=== PATIENT | male | born 1955 | race Caucasian/White ===

== ENCOUNTER 2021-09-05 10:43 | Inpatient (IN) | payer MEDICARE, OTHER ==
[~2021-09-05] VITALS: Ht 162.6 cm; Wt 76.7 kg
[2021-09-05 13:46] LABS: HEMOGLOBIN 15.3 gm/dl (14.0-17.5); RED BLOOD COUNT 4.9 M/UL (4.20-5.50); WHITE BLOOD COUNT 9.4 K/UL (4.5-11.0)
[2021-09-05 14:44] LABS: BUN/CREATININE RATIO 24 (0-10)
[2021-09-05] MEDS ORDERED: DICLOFENAC SODI50 MG PO (18:17)
[2021-09-05] MEDS ORDERED: ATORVASTATIN CA40 MG PO (18:18)
[2021-09-05] MEDS ORDERED: AMMONIUM LACTA225 GM TOP (18:18)
[2021-09-05] MEDS ORDERED: DEPAKOTE ER500 MG PO (18:19)
[2021-09-05] MEDS ORDERED: BENZTROPINE MESY1 MG PO (18:19)
[2021-09-05] MEDS ORDERED: METFORMIN HCL500 MG PO (18:20)
[2021-09-05] MEDS ORDERED: OMEPRAZOLE20 MG PO (18:20)
[2021-09-05] MEDS ORDERED: FOLIC ACID1 MG PO (18:20)
[2021-09-05] MEDS ORDERED: OXCARBAZEPINE600 MG PO (18:21)
[2021-09-05] MEDS ORDERED: RISPERIDONE0.5 MG PO (18:21)
[2021-09-05] MEDS ORDERED: ASPIRIN EC81 MG PO (18:22)
[2021-09-05] MEDS ORDERED: VITAMIN B-121000 MCG PO (18:22)
[2021-09-05] MEDS ORDERED: CALCIUM + VITA1 EACH PO (18:22)
[2021-09-06 06:42] LABS: HEMOGLOBIN 14.4 gm/dl (14.0-17.5); RED BLOOD COUNT 4.61 M/UL (4.20-5.50); WHITE BLOOD COUNT 7.6 K/UL (4.5-11.0)
[2021-09-06 06:54] LABS: BUN/CREATININE RATIO 24 (0-10)
[2021-09-07 10:28] LABS: HEMOGLOBIN 14.3 gm/dl (14.0-17.5); RED BLOOD COUNT 4.54 M/UL (4.20-5.50); WHITE BLOOD COUNT 6.3 K/UL (4.5-11.0)
[2021-09-07 10:54] LABS: BUN/CREATININE RATIO 16 (0-10)
[2021-09-08 07:33] LABS: HEMOGLOBIN 14.2 gm/dl (14.0-17.5); RED BLOOD COUNT 4.65 M/UL (4.20-5.50); WHITE BLOOD COUNT 7.4 K/UL (4.5-11.0)
[2021-09-08 08:51] LABS: BUN/CREATININE RATIO 11 (0-10)
[2021-09-09 11:28] LABS: HEMOGLOBIN 15.1 gm/dl (14.0-17.5); RED BLOOD COUNT 4.83 M/UL (4.20-5.50); WHITE BLOOD COUNT 7.7 K/UL (4.5-11.0)
[2021-09-09 11:47] LABS: BUN/CREATININE RATIO 15 (0-10)
[2021-09-09] MEDS ORDERED: ELIQUIS 5 MG TAB5 MG PO ×2 (14:43→14:48)
== END 2021-09-09 16:07 | disposition home or self-care (01) | DRG 300 ==
LOC: EDBD 10:43 → ER1 10:43 → CDU 16:23 → MED SURG 4 16:23
PROVIDERS: Physician Assistant; ADMIT Internal Medicine
DX: I82.621 Acute embolism and thrombosis of deep veins of right upper extremity (principal); E22.2 Syndrome of inappropriate secretion of antidiuretic hormone; Z20.822 Contact with and (suspected) exposure to COVID-19; M50.30 Other cervical disc degeneration, unspecified cervical region; S14.3XXA Injury of brachial plexus, initial encounter; G31.84 Mild cognitive impairment of uncertain or unknown etiology; E78.5 Hyperlipidemia, unspecified; I82.A11 Acute embolism and thrombosis of right axillary vein; G40.909 Epilepsy, unspecified, not intractable, without status epilepticus; F79 Unspecified intellectual disabilities; M48.02 Spinal stenosis, cervical region; Z91.81 History of falling; Z79.01 Long term (current) use of anticoagulants; Z79.82 Long term (current) use of aspirin
CPT/HCPCS: 36415; 70450; 72125; 73030; 73060; 73080; 73090; 73130; 80048; 80053; 82550; 82553; 83735; 83874; 84439; 84443; 84484; 85025; 85027; 85610; 85730; 93005; 93931; 93971; 97116-GP-CQ; 97161; 97530-GP-CQ; 99285; J1650; U0002

== ENCOUNTER 2021-12-20 18:37 | Emergency (ER) | payer MEDICARE, OTHER ==
[~2021-12-20 18:37] MED LIST: AMMONIUM LACTA225 GM TOP; ASPIRIN EC81 MG PO; ATORVASTATIN CA40 MG PO; BENZTROPINE MESY1 MG PO; CALCIUM + VITA1 EACH PO; DEPAKOTE ER500 MG PO; DICLOFENAC SODI50 MG PO; ELIQUIS 5 MG TAB5 MG PO; FOLIC ACID1 MG PO; METFORMIN HCL500 MG PO; OMEPRAZOLE20 MG PO; OXCARBAZEPINE600 MG PO; RISPERIDONE0.5 MG PO; VITAMIN B-121000 MCG PO
== END 2021-12-20 19:35 | disposition home or self-care (01) ==
LOC: ER1 18:37
DX: U07.1 COVID-19 (principal); E11.9 Type 2 diabetes mellitus without complications; Z79.84 Long term (current) use of oral hypoglycemic drugs; K21.9 Gastro-esophageal reflux disease without esophagitis; E78.5 Hyperlipidemia, unspecified; G40.909 Epilepsy, unspecified, not intractable, without status epilepticus; I10 Essential (primary) hypertension; F17.290 Nicotine dependence, other tobacco product, uncomplicated
CPT/HCPCS: 99283

== ENCOUNTER → 2021-12-23 | Outpatient (CLI) | payer MEDICARE, OTHER ==
[~2021-12-23] VITALS: Ht 162.6 cm; Wt 76.7 kg
== END ==
LOC: EROP 11:51
DX: U07.1 COVID-19 (principal); Z23 Encounter for immunization
CPT/HCPCS: M0247; Q0247

== ENCOUNTER 2022-01-27 18:59 | Emergency (ER) | payer MEDICARE, OTHER ==
[2022-01-27 19:50] LABS: HEMOGLOBIN 13.7 gm/dl (14.0-17.5); RED BLOOD COUNT 4.53 M/UL (4.20-5.50); WHITE BLOOD COUNT 6.6 K/UL (4.5-11.0)
[2022-01-27 20:14] LABS: BUN/CREATININE RATIO 22 (0-10)
== END 2022-01-27 22:11 | disposition home or self-care (01) ==
LOC: ER1 18:59
PROVIDERS: Physician Assistant
DX: M79.89 Other specified soft tissue disorders (principal); I10 Essential (primary) hypertension
CPT/HCPCS: 80053; 85025; 85379; 99283